=== PATIENT | female | born 1980 | race Caucasian/White ===

== ENCOUNTER 2021-03-22 20:33 | Emergency (ER) | payer BC ==
[~2021-03-22] VITALS: Ht 167.6 cm; Wt 109.1 kg
[2021-03-22 20:42] VITALS: TEMP 98.9
[2021-03-22 21:31] LABS: STREP SCREEN NEGATIVE
[2021-03-22 22:06] VITALS: BP 120/75; PULSE 96
== END 2021-03-22 22:07 | disposition home or self-care (01) ==
LOC: COL.ER 20:33
PROVIDERS: Nurse Practitioner
DX: J02.9 Acute pharyngitis, unspecified (principal)